=== PATIENT | male | born 1935 | race Caucasian/White ===

== ENCOUNTER → 2017-02-28 | Outpatient (CLI) | payer MEDICARE ==
[2014-08-18 10:57] VITALS: BP 100/55
[~2017-02-28] MED LIST: ACET325T9 PO; ALBU4TAB3 PO; APIX2.5T PO; APIX5TAB PO; ASPI-630 PO; ATOR40TA PO; CHOL10003 PO; DILT120C80 PO; DRON400T PO; FERR-26 PO; GARL10002 PO; HYDR-963 PO; LEVO500T8 PO; META10TA PO; METO25TA4 PO; NAPR220C4 PO; OMEP40CA5 PO; PRED-220 PO; SOTA120T PO; WARF1TAB7 PO; ZOLP5TAB5 PO; [UNRECOGNIZED DRUG - CODE] PO
--- NOTE | 2017-03-01 07:57 | PAIN ---
DATE OF SERVICE: 02/28/2017 PROGRESS NOTE FOR PAIN CLINIC DIAGNOSIS: Lumbar radiculopathy with lumbar degenerative disk disease. HISTORY OF PRESENT ILLNESS: The patient is an 81-year-old male who returns for followup, last seen 07/29/2016. The patient had undergone lumbar epidural steroid injections at that time with very good results, near 90% improvement after the first injection and about 75% after the second injection. The patient reports the pain has returned now, however, in the low back and into the right lower extremity as it was previously. The patient reports it is a sharp pain that is off and on, but worse with activity, worse in the morning when he first gets up. The patient reports it does not awaken him from sleep at night, he sleeps well through the night, but when he ____ is getting up in the morning, it is the worst pain. The patient reports it is a 5-6 on a scale of 10, is currently a 5 today. The patient reports no new motor or sensory deficits, no new bowel or bladder incontinence, but has been recently put on Eliquis for atrial fibrillation about a month ago. PHYSICAL EXAMINATION: VITAL SIGNS: The patient's blood pressure is 156/89, respirations are 18, pulse is 72 and temperature is 98.0 degrees Fahrenheit. Height is 5 feet 11 inches, weight is 182 pounds. GENERAL: The patient is awake, alert, oriented, appropriate, has a very pleasant demeanor. HEENT: Shows normocephalic, atraumatic. Extraocular movements are intact and symmetrical. Oral cavity, mucous membranes are moist and pink. Dentition is intact. NECK: Shows anterior throat supple without palpable lymphadenopathy noted. Swallow reflex is symmetrical. CHEST: Shows normal on inspection. Breath sounds are clear to auscultation bilaterally. HEART: Shows S1 and S2 clear. ABDOMEN: Soft, nontender, nondistended. No palpable organomegaly is noted. No rebound or guarding demonstrated. BACK: Shows spine grossly in the midline. Lumbar paraspinous muscle shows some mild tenderness with palpation only diffusely in the lumbar distribution bilaterally, but is symmetrical without evidence of atrophy or hypertrophy. The patient shows full rotational motion both laterally as well as extension and flexion without difficulty or pain reported. No tenderness over the sacrum or sacroiliac regions. EXTREMITIES: Lower extremities show deep tendon reflexes at 2+ in the patellar, 1+ tendo-calcaneus tendons, are symmetrical. Motor exam is approximately 4 on a scale of 5 for left ankle flexion and extension, but 5/5 with dorsiflexion and extension on the right and 5/5 with quadriceps and hamstring flexion bilaterally. PLAN: Options were discussed with the patient. We will consult the patient's roller leveler operator regarding holding his Eliquis for about 3 days prior to the injection. If cleared to do this, we will have him return and proceed with a lumbar epidural steroid injection. Also try Medrol Dosepak in the meantime and see if this may help the pain as well. We are waiting to hear from his roller leveler operator. The patient was given instructions as well as side effects to be aware of with this medication. The patient will follow up after we hear from his roller leveler operator. KAYLEEN PARIS MD DR: BARBARA/michell JOB#: [id number] / [id number]
== END | disposition home or self-care (01) ==
LOC: PNCL 13:12
PROVIDERS: ATTEND Anesthesiology
DX: M51.16 Intervertebral disc disorders with radiculopathy, lumbar region (principal)
CPT/HCPCS: G0463

== ENCOUNTER → 2017-03-06 | Outpatient (CLI) | payer MEDICARE ==
[2014-08-18 10:57] VITALS: BP 100/55
[~2017-03-06] MED LIST changes: +IOHEXOL 180 MG/ML 10 ML VIAL. ONE; +methylPREDNISolone ACETATE 40 MG/ML VIAL. ONE; +methylPREDNISolone ACETATE 80 MG/ML VIAL. ONE
--- NOTE | 2017-03-06 09:39 | PAIN ---
DATE OF SERVICE: 03/06/2017 PROGRESS NOTE FOR PAIN CLINIC DIAGNOSES: Lumbar radiculopathy with lumbar degenerative disk disease. HISTORY OF PRESENT ILLNESS: The patient is an 81-year-old male who returns for followup status post initial evaluation and holding the Eliquis for 7 days. The patient has been off of this now for 7 days and would like to proceed with lumbar epidural steroid injections. We had talked that we did try Medrol Dosepak with the patient, which reports excellent results with. The pain is almost 100% improved with that, but still is having some pain in the low back and right leg, posterior hip, posterior thigh, lateral thigh in to the right calf to some extent. The patient reports it as sharp, off and on in intensity, only a 2 on a scale of 10. He has been increasing his activity with greater ease and comfort and is very pleased with his progress thus far. The patient reports no new motor or sensory deficits, no new bowel or bladder incontinence. He is sleeping well at night. No difficulty with positional exacerbation of pain. PHYSICAL EXAMINATION: VITAL SIGNS: The patient's blood pressure is 108/67, pulse 75, respirations 18, temperature 98.2 degrees Fahrenheit, height is 5 feet 11 inches, weight is 182 pounds. GENERAL: The patient is awake, alert, oriented, appropriate, has a very pleasant demeanor. HEENT: Head shows normocephalic, atraumatic. Extraocular movements are intact and symmetrical. Oral cavity has mucous membranes moist and pink. Dentition is intact. NECK: Shows anterior throat supple. CHEST: Shows normal on inspection. Breath sounds are clear to auscultation bilaterally. HEART: Shows S1 and S2 clear. No murmurs auscultated. ABDOMEN: Soft, nontender, nondistended. No palpable organomegaly is noted. BACK: Shows spine grossly in the midline. Lumbar paraspinous musculature showed some mild tenderness with palpation, but only diffusely without radiation. No tenderness with the spinous processes, sacrum or sacroiliac regions. The patient shows good rotational motion of the lumbar spine, both laterally as well as extension and flexion without exacerbation of pain. EXTREMITIES: Lower extremities show deep tendon reflexes 2+ in the patellar, 1+ tendo-calcaneus tendons are equal. Motor exam is approximately 4 on a scale of 5 with left ankle and 5/5 on the right. PLAN: Options were discussed with the patient. The patient's old chart was reviewed as his current medication and updated. Current review of systems updated today as well and we will proceed with a lumbar epidural steroid injection. It is the first in the series with fluoroscopic guidance. Risks were again discussed including, but not limited to bleeding, infection, possibility of epidural hematoma and subsequent neurologic compromise, dural puncture, headaches, spinal cord and/or nerve damage, side effects of steroid medication and poor results regarding pain control. The patient understands and wishes to proceed. The patient will return to the clinic in approximately 2 weeks for followup, was counseled on return appointment, activity level and side effects to be aware of. DIAGNOSES: Lumbar radiculopathy with lumbar degenerative disk disease. PROCEDURES: Lumbar epidural steroid injection in translaminar approach at the L4-L5 level using C-arm fluoroscopic guidance under sterile prep and drape using local anesthetic. MEDICATION INJECTED: A 120 mg of Depo-Medrol plus 10 mL of preservative-free normal saline and 2 mL Isovue for contrast. CONDITION AT DISCHARGE: Stable. The patient tolerated the procedure well, had no complications. KAYLEEN PARIS MD DR: BARBARA/michell JOB#: [id number] / [id number]
== END | disposition home or self-care (01) ==
LOC: PNCL 08:21
PROVIDERS: ATTEND Anesthesiology
DX: M51.16 Intervertebral disc disorders with radiculopathy, lumbar region (principal); I10 Essential (primary) hypertension; I25.10 Atherosclerotic heart disease of native coronary artery without angina pectoris; E78.00 Pure hypercholesterolemia, unspecified; I48.91 Unspecified atrial fibrillation; Z87.891 Personal history of nicotine dependence
CPT/HCPCS: 62323; J1030; J1040

== ENCOUNTER → 2017-06-20 | Outpatient (CLI) | payer MEDICARE ==
[2014-08-18 10:57] VITALS: BP 100/55
--- NOTE | 2017-06-20 10:36 | PAIN ---
DATE OF SERVICE: 06/20/2017 DIAGNOSES: Lumbar radiculopathy with lumbar degenerative disk disease. HISTORY OF PRESENT ILLNESS: The patient is an 81-year-old male who returns for followup status post lumbar epidural steroid injection x 1 on 03/06/2017. The patient did very well with this, about 90% improvement until the last few weeks. About 3 weeks ago, pain began to return in his low back and right leg, more in the back than the leg. At this time, he was increasing some activity. He has been harvesting some nuts and plants at home with some bending and stooping activity involvement, seems to have brought the pain back on to some extent by his report. The patient reports it is an aching pain, it is dull, it is occasionally shooting. Does not awaken him from sleep at night, though feels much better with lying down or sitting; worse with on his feet, walking, standing or bending. The patient reports it is a 7 on a scale of 10 at its worse, is average about 5 and at its least is about 3, it is a 3 today. The patient reports no new motor or sensory deficits, no new bowel or bladder incontinence or other complaints. PHYSICAL EXAMINATION: VITAL SIGNS: The patient's blood pressure 162/71, pulse 70, respirations 18, temperature 97.8 degrees Fahrenheit, weight is 184 pounds. GENERAL: The patient is awake, alert, oriented, appropriate, very pleasant demeanor. HEENT: Head shows normocephalic, atraumatic. Extraocular movements are intact and symmetrical. Oral cavity: Mucous membranes moist and pink. Dentition is intact. NECK: Shows anterior throat supple without palpable lymphadenopathy noted. Swallow reflex is symmetrical. CHEST: Shows normal with inspection. Breath sounds clear to auscultation bilaterally. HEART: Shows S1 and S2 clear. ABDOMEN: Soft, nontender, nondistended. No palpable organomegaly is noted. BACK: Shows spine grossly midline. Normal appearing thoracic kyphosis and lumbar lordotic curvature. Lumbar paraspinous musculature shows symmetrical with palpation shows moderately tender on the low lumbar distribution, slightly more on the right than the left, but tender bilaterally. No radiation, no trigger points. No tenderness over the spinous processes, sacrum or sacroiliac regions. The patient's lower extremity showed deep tendon reflexes at 2+ in the patellar and 1+ tendo calcaneus tendons. Motor exam is strong with 5/5 dorsiflexion, extension, quadriceps and hamstring flexion are equal. Options were discussed with the patient and the patient's old chart was reviewed as his current medication regimen and updated. Current review of systems updated today as well. We will proceed with a second in the series of lumbar epidural steroid injection today with fluoroscopic guidance. Risks were again discussed including, but not limited to bleeding, infection, possibility of epidural hematoma, subsequent neurologic compromise, dural puncture, headaches, spinal cord and/or nerve damage, side effects of steroid medication and poor results regarding pain control. The patient understands and wishes to proceed. The patient will return to clinic in approximately 2 weeks for followup. He was counseled to return appointment, activity level and side effects to be aware of. DIAGNOSIS: Lumbar radiculopathy with lumbar degenerative disk disease. PROCEDURE: Lumbar epidural steroid injection, translaminar approach, L4-L5 level using C-arm fluoroscopic guidance under sterile prep and drape using local anesthetic. MEDICATION INJECTED: A 120 mg of Depo-Medrol plus 10 preservative-free normal saline and 2 mL of Isovue for contrast. CONDITION AT DISCHARGE: Stable. The patient tolerated procedure well, had no complications. KAYLEEN PARIS MD DR: BARBARA/michell JOB#: [id number] / [id number]
== END | disposition home or self-care (01) ==
LOC: PNCL 08:31
PROVIDERS: ATTEND Anesthesiology
DX: M51.16 Intervertebral disc disorders with radiculopathy, lumbar region (principal); I25.10 Atherosclerotic heart disease of native coronary artery without angina pectoris; I10 Essential (primary) hypertension; F17.210 Nicotine dependence, cigarettes, uncomplicated; E78.00 Pure hypercholesterolemia, unspecified; I48.91 Unspecified atrial fibrillation
CPT/HCPCS: 62323; J1030; J1040

== ENCOUNTER → 2017-10-16 | Outpatient (CLI) | payer MEDICARE ==
[~2017-10-16] MED LIST changes: -ACET325T9 PO; -ALBU4TAB3 PO; -APIX2.5T PO; -APIX5TAB PO; -ASPI-630 PO; -ATOR40TA PO; -CHOL10003 PO; -DILT120C80 PO; -DRON400T PO; -FERR-26 PO; -GARL10002 PO; -HYDR-963 PO; +IOHEXOL 180 MG/ML 10 ML VIAL.; -IOHEXOL 180 MG/ML 10 ML VIAL. ONE; -LEVO500T8 PO; -META10TA PO; -METO25TA4 PO; -NAPR220C4 PO; -OMEP40CA5 PO; -PRED-220 PO; -SOTA120T PO; -WARF1TAB7 PO; -ZOLP5TAB5 PO; -[UNRECOGNIZED DRUG - CODE] PO; +methylPREDNISolone ACETATE 40 MG/ML VIAL.; -methylPREDNISolone ACETATE 40 MG/ML VIAL. ONE; +methylPREDNISolone ACETATE 80 MG/ML VIAL.; -methylPREDNISolone ACETATE 80 MG/ML VIAL. ONE
== END | disposition home or self-care (01) ==
LOC: PNCL 09:05
DX: M51.16 Intervertebral disc disorders with radiculopathy, lumbar region (principal); E78.00 Pure hypercholesterolemia, unspecified; I11.0 Hypertensive heart disease with heart failure; I50.9 Heart failure, unspecified; I48.91 Unspecified atrial fibrillation; I25.10 Atherosclerotic heart disease of native coronary artery without angina pectoris; Z98.890 Other specified postprocedural states; Z87.891 Personal history of nicotine dependence
CPT/HCPCS: 62323; J1030; J1040

== ENCOUNTER → 2018-03-29 | Outpatient (CLI) | payer MEDICARE ==
[~2018-03-29] MED LIST changes: +LIDOCAINE 1% PF 2 ML VIAL.
== END | disposition home or self-care (01) ==
LOC: PNCL 10:06
DX: M51.16 Intervertebral disc disorders with radiculopathy, lumbar region (principal); E78.00 Pure hypercholesterolemia, unspecified; I11.0 Hypertensive heart disease with heart failure; I50.9 Heart failure, unspecified; I25.10 Atherosclerotic heart disease of native coronary artery without angina pectoris; Z95.5 Presence of coronary angioplasty implant and graft; Z95.810 Presence of automatic (implantable) cardiac defibrillator; I48.91 Unspecified atrial fibrillation; Z85.46 Personal history of malignant neoplasm of prostate; Z87.891 Personal history of nicotine dependence; Z90.79 Acquired absence of other genital organ(s); Z93.2 Ileostomy status
CPT/HCPCS: 62323; J1030; J1040; Q9965